=== PATIENT | male | born 1980 | race Caucasian/White ===

== ENCOUNTER 2016-07-08 21:19 | Emergency (ER) | payer SELFPAY ==
--- NOTE | ~2016-07-08 | CR63 ---
[facility]. [facility] A Service of [facility] RADIOLOGY TEXT RESULTS PATIENT: CONSTANZA ALEGRIA LOCATION: SED : 76 UNIT #: [id number] AGE: [address]: DOROTHY VARELA SEX: M ORDER DR: [id number] [place] [id number] E MR#: [id number] Acc #: [id number] NAME: CONSTANZA ALEGRIA. : 1980 SEX: M STUDY DATE/TIME: 07/08/2016 21:23 UNIT: SED ROOM: STUDY DESCRIPTION: CR Chest 2 View Attending Physician: Dorothy Varela Ordering Physician: Physician Non-Staff Primary Care Physician: No Primary Care Physician MEDICAL IMAGING REPORT This report is preliminary unless electronic signature is present. EXAM Two-view chest. HISTORY Cough, shortness of air, congestion x2 days. FINDINGS Two-views of the chest demonstrate moderate lung volumes and satisfactory technique. No infiltrates or effusions. Mild cardiomegaly. Mediastinum, great vessels, bony thorax unremarkable. IMPRESSION No active disease. Dictated by... Sonia Poole M.D. THIS IS AN ELECTRONICALLY VERIFIED REPORT Sonia Poole M.D. at 07/09/2016 8:43 PM [facility] TD: 07/09/2016 11:21 JOB #: [id number] MEDICAL IMAGING REPORT
[~2016-07-08 21:19] MED LIST: BENZONATATE PO; CATAPRES0.1 MG PO; HYDROCODON-ACE1 EAC9 PO; KLONOPIN1 MG PO; LEVAQUIN750 M1 PO; LIBRIUM PO; MOBIC PO; NO MEDICATIONS; NORFLEX100 M1 PO; OMNICEF300 MG PO; TYLENOL325 M1 PO; ZITHROMAX500 MG PO; ZOFRAN ODT4 MG PO
== END 2016-07-08 22:17 | disposition home or self-care (01) ==
LOC: SED 21:19
DX: J20.9 Acute bronchitis, unspecified (principal); R03.0 Elevated blood-pressure reading, without diagnosis of hypertension; F41.9 Anxiety disorder, unspecified; F17.210 Nicotine dependence, cigarettes, uncomplicated
CPT/HCPCS: 71020; 94640; 99284